=== PATIENT | male | born 1980 | race Caucasian/White ===

== ENCOUNTER 2020-03-29 17:53 | Emergency (ER) | payer MEDICAID ==
[~2020-03-29] VITALS: Ht 167.6 cm; Wt 68.0 kg
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
--- NOTE | 2020-03-29 18:25 | NUR ---
PT TO CT SCAN, C-COLLAR PLACED
[2020-03-29 18:26] LABS: BASOPHILS # (AUTO) 0.04 x10^3/uL (0-0.1); BASOPHILS % (AUTO) 1 % (0-1); EOSINOPHILS # (AUTO) 0.05 x10^3/uL (0-0.4); EOSINOPHILS % (AUTO) 1 % (1-7); LYMPHOCYTES # (AUTO) 0.81 x10^3/uL (1-3.4); LYMPHOCYTES % (AUTO) 12 % (22-44); MD NO; MEAN CORPUSCULAR HEMOGLOBIN 30.5 pg (27.5-34.5); MEAN CORPUSCULAR VOLUME 92.5 fL (81-97); MEAN PLATELET VOLUME 8.1 fL (7.4-10.4); MONOCYTES # (AUTO) 0.48 x10^3/uL (0.2-0.8); MONOCYTES % (AUTO) 7 % (2-9); NEUTROPHILS # (AUTO) 5.56 x10^3/uL (1.8-6.8); NEUTROPHILS % (AUTO) 80 % (42-75); PLATELET COUNT 253 x10^3/uL (130-400); RED BLOOD COUNT 5.08 x10^6/uL (4.38-5.82); RED CELL DISTRIBUTION WIDTH 13.8 % (9.4-14.8)
[2020-03-29] MEDS ORDERED: DIPH,PERTUSS(ACELL),TET VAC/PF 0.5 ML IM-VACC ONE ×2 (18:30→18:57)
--- NOTE | 2020-03-29 18:30 | NUR ---
REPORT TO RAPHAEL VÁZQUEZ
--- NOTE | 2020-03-29 18:32 | NUR ---
BACK FROM CT SCAN. PT MOVED TO TRAUMA 3, PT C/O OF UNABLE TO MOVE FEET, REFUSED 2ND IV, PT UNCOOPERATIVE. INCREASE EMOTIONAL SUPPORT GIVEN. PAT PLACED ON CARIDAC MONITOR, CONTINOUS SP02 AND CYCLE VS.
[2020-03-29 18:39] LABS: CHLORIDE 113 mmol/L (98-107)
--- NOTE | 2020-03-29 18:42 | NUR ---
RESTRAINTS DISCONTINUED. PT REMAINS CUSSING AT STAFF, NO LONGER COMBATIVE
[2020-03-29 18:49] LABS: ALANINE AMINOTRANSFERASE 23 U/L (12-78); ALBUMIN 3.5 g/dL (3.4-5.0); ALKALINE PHOSPHATASE 72 U/L (45-117); ANION GAP 5 mmol/L (5-15); BILIRUBIN,TOTAL 0.4 mg/dL (0.2-1.0); CALCIUM 8.7 mg/dL (8.5-10.1); CREATININE 1.27 mg/dL (0.7-1.3); TOTAL PROTEIN 6.7 g/dL (6.4-8.2)
[2020-03-29] MEDS ORDERED: LORazepam 2 MG/ML, 1ML IVPush ONE (19:00)
--- NOTE | 2020-03-29 19:04 | NUR ---
RECEIVED REPORT FROM KATHIE LIM. AWAITING CT SCAN.
--- NOTE | 2020-03-29 19:10 | NUR ---
PA AT BEDSIDE FOR RE-EVALUATION.
[2020-03-29] MEDS ORDERED: ONDANSETRON 2MG/ML, 2ML ONE (19:19)
[2020-03-29] MEDS ORDERED: MORPHINE SULFATE 4 MG/ML, 1ML ONE (19:20)
[2020-03-29] MEDS ORDERED: LORazepam 2 MG/ML, 1ML ONE (19:21)
[2020-03-29] MEDS ORDERED: LIDOCAINE 1%-EPI 1:100K, 20ML ONE (19:22)
[2020-03-29] MEDS ORDERED: ONDANSETRON 2MG/ML, 2ML IVPush ONE (19:30)
[2020-03-29] MEDS ORDERED: LIDOCAINE 1%-EPI 1:100K, 20ML SQ ONE (19:30)
[2020-03-29] MEDS ORDERED: MORPHINE SULFATE 4 MG/ML, 1ML IVPush PRN (19:30)
--- NOTE | 2020-03-29 19:34 | NUR ---
X RAY OF RIGHT SHOULDER DONE. PATIENT MEDICATED FOR PAIN. INDUSTRIAL PAINTER AT BEDSIDE FOR WOUND IRRIGATION.
--- NOTE | 2020-03-29 19:49 | NUR ---
WOUND IRRIGATION DONE.
--- NOTE | 2020-03-29 20:22 | NUR ---
DR. CORDERO AT BEDSIDE.
[2020-03-29 21:25] VITALS: BP 146/99
--- NOTE | 2020-03-29 21:26 | NUR ---
RE-EVALUATION DONE. PATIENT CLEARED TO GO TO [facility]. DISCHARGED WITH [employer]. PATIENT CALM AND COOPERATIVE.
[2020-03-29 21:42] LABS: MICROSCOPIC NOT IND
[2020-03-29 21:43] LABS: AMPHETAMINE SCREEN, URINE Positive (Negative); BARBITURATE SCREEN, URINE Negative (Negative); BENZODIAZEPINE SCREEN, URINE Negative (Negative); CANNABINOID SCREEN, URINE Positive (Negative); COCAINE SCREEN, URINE Negative (Negative); METHADONE SCREEN, URINE Negative (Negative); OPIATE SCREEN, URINE Positive (Negative)
[2020-03-29] MEDS ORDERED: OMNIPAQUE 350 MG/ML, 100ML BOTTLE ONE (23:14)
== END 2020-03-29 21:30 | disposition home or self-care (01) ==
LOC: ED 21:24
DX: S02.2XXA Fracture of nasal bones, initial encounter for closed fracture (principal); S02.31XA Fracture of orbital floor, right side, initial encounter for closed fracture; S02.831A Fracture of medial orbital wall, right side, initial encounter for closed fracture; S02.40DA Maxillary fracture, left side, initial encounter for closed fracture; S02.40CA Maxillary fracture, right side, initial encounter for closed fracture; S01.01XA Laceration without foreign body of scalp, initial encounter; S01.111A Laceration without foreign body of right eyelid and periocular area, initial encounter; M25.511 Pain in right shoulder; R00.0 Tachycardia, unspecified; R91.1 Solitary pulmonary nodule; Y04.8XXA Assault by other bodily force, initial encounter; Y93.89 Activity, other specified; Y92.009 Unspecified place in unspecified non-institutional (private) residence as the place of occurrence of the external cause; Y99.8 Other external cause status
CPT/HCPCS: 12031; 12051; 36415; 70450; 70486; 71045; 71260; 72125; 73030; 74177; 80053; 80307; 81003; 85025; 90471; 90715; 93005; 96374; 96375; 99285; J2060; J2270; J2405; J3490; Q9967

== ENCOUNTER 2020-11-12 10:58 | Emergency (ER) | payer MEDICAID, OTHER ==
[~2020-11-12] VITALS: Ht 177.8 cm; Wt 73.0 kg
[2020-11-12 11:07] VITALS: BP 135/98
--- NOTE | 2020-11-12 11:18 | NUR ---
PT BIB EMS FOR NECK PAIN, LOWER BACK PAIN AND LOWER EXTREMITY NUMBNESS AFTER FALLING AND STRIKING LOWER BACK ON TOILET. PT IN CUSTODY OF [facility] AND IN RESTRAINTS SO NEURO EXAM IS LIMITED. PT SPEECH CLEAR AND LOWER EXT SENSATION INTACT.
--- NOTE | 2020-11-12 12:14 | NUR ---
PT REC'VD DISCHARGE INSTRUCTIONS AND EDUCATION. PT HAD NO QUESTIONS. PT PAPERWORK GIVEN TO LAW [employer] OFFICERS BEDSIDE.
== END 2020-11-12 12:36 | disposition home or self-care (01) ==
LOC: ED 11:29
DX: M54.5 Low back pain (principal); F17.200 Nicotine dependence, unspecified, uncomplicated
CPT/HCPCS: 72100; 99283